=== PATIENT | male | born 1990 | race Two or more races ===

== ENCOUNTER 2019-06-09 19:48 | Emergency (ER) | payer OTHER ==
[~2019-06-09] VITALS: Ht 170.2 cm; Wt 66.0 kg
--- NOTE | 2019-06-09 20:19 | NUR ---
Patient is in bed and in no obvious distress. On assessment patient complains of neck pain and is in a c-collar. Patient updated on POC.
--- NOTE | 2019-06-09 22:04 | NUR ---
Patient remains comfortable and declines pain medications. He is updated on POC.
--- NOTE | 2019-06-09 22:23 | NUR ---
CT READ AND DR. CABRALES TALKING WITH PT. C COLLAR REMOVED BY DR. CABRALES. PT TO BE DISCHARGED SHORTLY. PT TAKEN TO HIS MOTHER ROOM IN ER TO TALK WITH HER.
[2019-06-09] MEDS ORDERED: HYDR-3965 PO (22:26)
[2019-06-09 22:34] VITALS: BP 162/105
== END 2019-06-09 22:36 | disposition home or self-care (01) ==
LOC: ER 20:34
DX: S16.1XXA Strain of muscle, fascia and tendon at neck level, initial encounter (principal); S20.219A Contusion of unspecified front wall of thorax, initial encounter; Z79.899 Other long term (current) drug therapy; V89.2XXA Person injured in unspecified motor-vehicle accident, traffic, initial encounter; Y93.89 Activity, other specified; Y92.488 Other paved roadways as the place of occurrence of the external cause; Y99.8 Other external cause status
CPT/HCPCS: 70450; 71250; 72125; 74176; 93005; 99284